=== PATIENT | female | born 1975 | race African-American/Black ===

== ENCOUNTER 2016-10-12 15:31 | Emergency (ER) | payer OTHER ==
--- NOTE | ~2016-10-12 | US85 ---
[facility] A Service of [facility] & [facility] RADIOLOGY TEXT RESULTS PATIENT: JAZZMINE ESPOSITO LOCATION: [facility] : 73 UNIT #: [id number] AGE: [address]: Ace Adam MD SEX: F ORDER DR: [id number] [facility] [address] [place], [place] [address] [id number] E MR#: [id number] Acc #: [id number] NAME: JAZZMINE ESPOSITO : 1975 SEX: F STUDY DATE/TIME: 10/12/2016 19:53 UNIT: IB[facility] ROOM: STUDY DESCRIPTION: LE Veins Unilat or Ltd Stdy Attending Physician: Ace Adam M.D. Ordering Physician: Ace Adam M.D. MEDICAL IMAGING REPORT This report is preliminary unless electronic signature is present EXAM Right lower extremity venous duplex ultrasound 10/12/2016 HISTORY 41-year-old female with right leg pain for 1 week. COMPARISON None. FINDINGS Real time swain-scale, color Doppler, spectral Doppler analysis of the right lower extremity deep venous system demonstrates normal venous waveforms with normal compressibility and augmentation throughout. No evidence of right lower extremity deep venous thrombosis. IMPRESSION Negative for right lower extremity DVT Dictated by... Michael Cuellar M.D. THIS IS AN ELECTRONICALLY VERIFIED REPORT Michael Cuellar M.D. at 10/16/2016 7:48 AM ARCENIO/catherine TD: 10/13/2016 01:49 JOB #: [id number] MEDICAL IMAGING REPORT Page 1 of 1 COPY
== END 2016-10-12 21:00 | disposition home or self-care (01) ==
LOC: EDBD 15:31 → CED 15:31
DX: M79.661 Pain in right lower leg (principal); M25.561 Pain in right knee
CPT/HCPCS: 84703; 93971; 99284